=== PATIENT | male | born 1930 | race Caucasian/White ===

== ENCOUNTER → 2017-08-12 | Emergency (ER) | payer OTHER ==
[~2017-08-12] VITALS: Ht 160 cm; Wt 58.1 kg
[~2017-08-12] MED LIST: CLOPIDOGREL BIS75 MG; GALANTAMINE HBR24 MG; MEMANTINE HCL5 MG; SIMVASTATIN40 MG
== END | disposition home or self-care (01) ==
LOC: ER 14:05
DX: S00.83XA Contusion of other part of head, initial encounter (principal); S70.02XA Contusion of left hip, initial encounter; W18.39XA Other fall on same level, initial encounter; Y93.89 Activity, other specified; Y92.098 Other place in other non-institutional residence as the place of occurrence of the external cause; Y99.8 Other external cause status; G30.9 Alzheimer's disease, unspecified; F02.80 Dementia in other diseases classified elsewhere, unspecified severity, without behavioral disturbance, psychotic disturbance, mood disturbance, and anxiety